=== PATIENT | female | born 1980 | race Caucasian/White ===

== ENCOUNTER 2019-04-21 10:14 | Emergency (ER) | payer MEDICAID ==
[~2019-04-21] VITALS: Ht 175.3 cm; Wt 73.0 kg
[~2019-04-21 10:14] MED LIST: ARIP5TAB4 PO; CHLO25CA10 PO; CITA20TA28 PO; LANS30CA37 PO; LEVO125T69 PO; METH-603 PO; ONDA8TAB13 PO; PHEN15CA PO; PROM25TA14 PO; TOP25T PO
[2019-04-21] MEDS ORDERED: LORA-269 PO (10:41)
[2019-04-21] MEDS ORDERED: NICO-687 TOP (10:41)
[2019-04-21 10:56] VITALS: BP 130/80
== END 2019-04-21 10:57 | disposition home or self-care (01) ==
LOC: ER 10:14
DX: F10.20 Alcohol dependence, uncomplicated (principal); I10 Essential (primary) hypertension; J45.909 Unspecified asthma, uncomplicated; G89.29 Other chronic pain; F32.9 Major depressive disorder, single episode, unspecified; F12.90 Cannabis use, unspecified, uncomplicated; Z90.89 Acquired absence of other organs; Z98.890 Other specified postprocedural states; Z88.5 Allergy status to narcotic agent; Z88.1 Allergy status to other antibiotic agents; Z88.8 Allergy status to other drugs, medicaments and biological substances; Z79.899 Other long term (current) drug therapy; Y90.9 Presence of alcohol in blood, level not specified
CPT/HCPCS: 99283